=== PATIENT | female | born 1995 | race Caucasian/White ===

== ENCOUNTER 2017-11-01 12:00 | Emergency (ER) | payer OTHER ==
[~2017-11-01] VITALS: Ht 154.9 cm; Wt 59.2 kg
[~2017-11-01 12:00] MED LIST: METH500T37 PO
[2017-11-01 12:09] VITALS: Ht 154.9 cm; Wt 59.2 kg
[2017-11-01] MEDS ORDERED: METHYLPREDNISOLONE 125 MG VIAL IV STA (14:04)
[2017-11-01] MEDS ORDERED: ALBUT/IPRATROP 3MG/0.5MG NEB 3 ML VIAL INH STA (14:04)
[2017-11-01 14:25] VITALS: TEMP 36.7
[2017-11-01 14:52] LABS: BASO % 0.2 %; BASO ABS # 0.02 K/uL (0-0.2); EOS % 0.6 %; EOS ABS # 0.05 K/uL (0-0.5); HEMATOCRIT 39.9 % (37-47); HEMOGLOBIN 13.6 g/dL (12.0-16.0); IG# 0.06 K/uL (0.00-0.02); LYMPH % 30.6 %; LYMPH ABS # 2.47 K/uL (1.2-3.4); MEAN CELL VOLUME 87.1 fL (80-100); MEAN CORPUSCULAR HEMOGLOBIN 29.7 pg (25-34); MEAN CORPUSCULAR HGB CONC 34.1 g/dl (32-36); MEAN PLATELET VOLUME 8.4 fL (7.4-10.4); MONO % 19.1 %; MONO ABS # 1.54 K/uL (0.11-0.59); NEUT % 48.8 %; NEUT ABS # 3.94 K/uL (1.4-6.5); PLATELET COUNT 215 K/uL (130-400); RED CELL DISTRIBUTION WIDTH CV 13.1 % (11.5-14.5); RED CELL DISTRIBUTION WIDTH SD 41.7 fL (36.4-46.3); WHITE BLOOD COUNT 8.08 K/uL (4.8-10.8)
[2017-11-01 15:09] LABS: CALCIUM 8.7 mg/dl (8.5-10.1); CREATININE 0.64 mg/dl (0.60-1.20); POTASSIUM 3.3 mmol/L (3.5-5.1)
--- NOTE | 2017-11-01 15:14 | DIAGNOSTIC IMAGING REPORT ---
CHEST 2 VIEWS ROUTINE CLINICAL HISTORY: cough, wheeze dyspnea COMPARISON STUDY: No previous studies for comparison. FINDINGS: The bones soft tissues and hemidiaphragms are normal. The cardiomediastinal silhouette is normal. The lungs are clear. The pulmonary vasculature is normal. IMPRESSION: Negative chest. The above report was generated using voice recognition software. It may contain grammatical, syntax or spelling errors. Electronically signed by: Bennie Lorenzo M.D. 11/01/2017 3:13 PM Dictated Date/Time: 11/01/2017 3:13 PM
[2017-11-01] MEDS ORDERED: DOXY100C2 PO (15:30)
[2017-11-01 15:31] VITALS: BP 114/73; PULSE 94; O2SAT 97
--- NOTE | 2017-11-01 15:32 | EMERGENCY ROOM VISIT NOTE ---
History First contact with patient: 13:56 Chief Complaint: COUGH Stated Complaint: COUGH,CHEST TIGHTNESS Nursing Triage Summary: patient has been diagnosed with bronchitis in september was treated by [facility] with no improvement. came back to school and went to [facility] again and was given steroids and augmentin a week ago tuesday. and states she continues to have cough and chest tightness. augmentin not completed still has two days left of it History of Present Illness The patient is a 22 year old female who presents to the Emergency Room with complaints of head and chest congestion since September. The patient states that she went to [facility] in September for the head congestion, cough and chest congestion. She was placed on Augmentin. She continued to be sick over . When she came back to school she went to [facility] again last Tuesday for the same symptoms. She states they gave her steroids and Augmentin. She used steroids for 5 days. She is still taking the Augmentin. The patient states she is not getting any better. The patient states she has a lot of head congestion and intermittent right ear pain. She denies any sore throat or fever. She does admit to cough and wheezing. The patient is asthmatic and she is using her Ventolin inhaler every 4 hours. The patient denies any chest pain. She has been using saline nasal spray but no other over- the-counter medicines. The patient denies any body aches. Review of Systems 10 system review was performed and was negative unless stated otherwise history of present illness. Past Medical/Surgical History Medical Problems: (1) Asthma (2) C7 cervical fracture Surgical Problems: (1) History of adenoidectomy Family History FH: cancer FH: diabetes mellitus FH: heart disease FH: hypertension Social History Smoking Status: Never Smoker Alcohol Use: occasionally Marital Status: single Housing Status: lives with roommate Occupation Status: [employer] student Current/Historical Medications Scheduled Methocarbamol (Robaxin), 500 MG PO HS Physical Exam Vital Signs Date Time Temp Pulse Resp B/P (MAP) Pulse Ox O2 Delivery O2 Flow Rate FiO2 11/01/17 14:25 36.7 93 18 122/76 99 Room Air 11/01/17 12:15 95 Room Air 11/01/17 12:09 36.7 89 20 120/79 95 Room Air Physical Exam PHYSICAL EXAM: Vital Signs were reviewed: Temperature 36.7, blood pressure 120/ 79, pulse 89, respiratory rate 20 Reviewed Nurse's notes and agree. Oxygen saturation is 95 % on room air which is normal . GENERAL: 22-year-old female appears in no acute distress. MENTAL STATUS: Alert, oriented, coherent. EARS: Canals clear. TMs good light reflex, no erythema or fluid level noted. NOSE: Nasal mucosa with moderate erythema engorgement. PHARYNX: No erythema, no edema noted. No exudate noted. Airway is adequate. NECK: Supple, non-tender. No lymphadenopathy noted. LUNGS: Patient has expiratory wheezing and rhonchi noted at both bases. Upper lungs are clear bilaterally. CARDIAC: Regular rate and rhythm without murmur. SKIN: No rashes noted. Medical Decision & Procedures ER Provider Diagnostic Interpretation: CHEST 2 VIEWS ROUTINE CLINICAL HISTORY: cough, wheeze dyspnea COMPARISON STUDY: No previous studies for comparison. FINDINGS: The bones soft tissues and hemidiaphragms are normal. The cardiomediastinal silhouette is normal. The lungs are clear. The pulmonary vasculature is normal. IMPRESSION: Negative chest. The above report was generated using voice recognition software. It may contain grammatical, syntax or spelling errors. Electronically signed by: Bennie Lorenzo M.D. 11/01/2017 3:13 PM Dictated Date/Time: 11/01/2017 3:13 PM Laboratory Results 11/01/17 14:38 Red Blood Count 4.58, Mean Corpuscular Volume 87.1, Mean Corpuscular Hemoglobin 29.7, Mean Corpuscular Hemoglobin Concent 34.1, Mean Platelet Volume 8.4, Neutrophils (%) (Auto) 48.8, Lymphocytes (%) (Auto) 30.6, Monocytes (%) (Auto) 19.1, Eosinophils (%) (Auto) 0.6, Basophils (%) (Auto) 0.2, Neutrophils # (Auto ) 3.94, Lymphocytes # (Auto) 2.47, Monocytes # (Auto) 1.54, Eosinophils # (Auto ) 0.05, Basophils # (Auto) 0.02 11/01/17 14:38 Test 11/01/17 14:38 White Blood Count 8.08 K/uL (4.8-10.8) Red Blood Count 4.58 M/uL (4.2-5.4) Hemoglobin 13.6 g/dL (12.0-16.0) Hematocrit 39.9 % (37-47) Mean Corpuscular Volume 87.1 fL (80-100) Mean Corpuscular Hemoglobin 29.7 pg (25-34) Mean Corpuscular Hemoglobin Concent 34.1 g/dl (32-36) Platelet Count 215 K/uL (130-400) Mean Platelet Volume 8.4 fL (7.4-10.4) Neutrophils (%) (Auto) 48.8 % Lymphocytes (%) (Auto) 30.6 % Monocytes (%) (Auto) 19.1 % Eosinophils (%) (Auto) 0.6 % Basophils (%) (Auto) 0.2 % Neutrophils # (Auto) 3.94 K/uL (1.4-6.5) Lymphocytes # (Auto) 2.47 K/uL (1.2-3.4) Monocytes # (Auto) 1.54 K/uL (0.11-0.59) Eosinophils # (Auto) 0.05 K/uL (0-0.5) Basophils # (Auto) 0.02 K/uL (0-0.2) RDW Standard Deviation 41.7 fL (36.4-46.3) RDW Coefficient of Variation 13.1 % (11.5-14.5) Immature Granulocyte % (Auto) 0.7 % Immature Granulocyte # (Auto) 0.06 K/uL (0.00-0.02) Anion Gap 7.0 mmol/L (3-11) Est Creatinine Clear Calc Drug Dose 114.9 ml/min Estimated GFR () 147.8 Estimated GFR (Non- 127.6 BUN/Creatinine Ratio 26.3 (10-20) Calcium Level 8.7 mg/dl (8.5-10.1) Medications Administered Medications (Trade) Dose Ordered Sig/Yessica Route Start Time Stop Time Status Last Admin Dose Admin Albuterol/ Ipratropium (Duoneb) 3 ml NOW STAT INH 11/01/17 14:04 11/01/17 14:06 DC 11/01/17 14:46 3 ML Methylprednisolone Sodium Succinate (Solu-Medrol IV) 125 mg NOW STAT IV 11/01/17 14:04 11/01/17 14:06 DC 11/01/17 14:45 125 MG ED Course The patient was evaluated. The patient's EMR medication list were reviewed. IV access was obtained. CBC and differential and renal profile was ordered. The patient was given Solu-Medrol 125 mg IV. She was given a DuoNeb. Chest x- ray was ordered and interpreted by the radiologist and myself as above without any acute findings. Labs are reviewed and were unremarkable. The patient was reevaluated and stated she was feeling slightly better after the DuoNeb. The patient was informed of all findings. I discussed with the pharmacist the best antibiotic to switch this patient. He recommended doxycycline. The patient was discharged home in stable condition. Medical Decision Differential diagnosis include acute sinusitis, bronchitis, pneumonia, influenza. The patient did not present with a typical influenza symptoms therefore influenza swab was not performed. [place] Drug Monitoring Program Search Results: patient reviewed within database Medication Reconcilliation Current Medication List: was personally reviewed by me Blood Pressure Screening Patient's blood pressure: Normal blood pressure Impression Primary Impression: Acute sinusitis Additional Impressions: Acute bronchitis Asthma Departure Information Dispostion Home / Self-Care Condition GOOD Prescriptions Doxycycline Hyclate (VIBRAMYCIN) 100 Mg Cap 100 MG PO BID for 10 Days, #20 CAP Prov: Viv Lorenzo PA-C 11/01/17 Referrals No Doctor, Assigned (PCP) Forms HOME CARE DOCUMENTATION FORM, IMPORTANT VISIT INFORMATION Patient Instructions Bronchitis Acute, ED Sinusitis Abx Tx, My [facility] Additional Instructions Discontinue Augmentin. Start doxycycline today and take as directed. Recommend [id number] Mucinex for 7 days. Continue Ventolin inhaler 2 puffs every 4 hours for at least 5-7 days. Also recommend njsk-yor-uvsizhe antihistamine such as Claritin or Zyrtec daily. Recommend bpew-whd-aienirn steroid nasal spray once daily as directed. This would be either Flonase or Nasacort, etc. . Blow your nose as much as possible. Cough out as much sputum as possible. If symptoms worsen, return to ER. If symptoms persist recommend following up with your family doctor when you're home on spring for evaluation of your asthma. Problem Qualifiers Primary Impression: Acute sinusitis Sinusitis location: unspecified location Recurrence: not specified as recurrent Qualified Codes: J01.90 - Acute sinusitis, unspecified Additional Impressions: Acute bronchitis Bronchitis organism: unspecified organism Qualified Codes: J20.9 - Acute bronchitis, unspecified Asthma Asthma severity: unspecified severity Asthma persistence: unspecified Asthma complication type: unspecified Qualified Codes: J45.909 - Unspecified asthma, uncomplicated
== END 2017-11-01 15:47 | disposition home or self-care (01) ==
LOC: C.EDB 12:02
DX: J01.90 Acute sinusitis, unspecified (principal); J20.9 Acute bronchitis, unspecified; J45.909 Unspecified asthma, uncomplicated; Z80.9 Family history of malignant neoplasm, unspecified; Z83.3 Family history of diabetes mellitus; Z82.49 Family history of ischemic heart disease and other diseases of the circulatory system